=== PATIENT | female | born 1945 | race Caucasian/White ===

== ENCOUNTER → 2017-02-08 | Outpatient (CLI) | payer MEDICARE, OTHER ==
[~2017-02-08] MED LIST: ALPRAZOLAM PO; AMBIEN PO; ASPIRIN EC81 M1 PO; ATROVENT NASAL15 ML; CITRACAL200 MG PO; FLORANEX T1 TAB.CHE3 PO; FOSAMAX70 MG PO; K-DUR10 MEQ PO; LIPITOR PO; NORCO 7.5-3251 EACH PO; OMEPRAZOLE40 M1 PO; PROVENTIL2 MG PO; QUININE SULFAT PO; SYMBICORT INH; TENORETIC PO; [UNRECOGNIZED DRUG - OTHER] PO
== END | disposition home or self-care (01) ==
LOC: CSSDAY 10:41
DX: M81.0 Age-related osteoporosis without current pathological fracture (principal); Z79.899 Other long term (current) drug therapy
CPT/HCPCS: 82310; 96372; J0897